=== PATIENT | female | born 1990 | race Caucasian/White ===

== ENCOUNTER → 2018-04-27 10:59 | Outpatient (CLI) | payer SELFPAY ==
[2018-04-27 12:46] LABS: Color, Urine Yellow (Yellow); Glucose, Dipstick Normal (Normal); Ketone-Dipstick Negative (Negative); Leukocyte Esterase-Dipstick Negative /ul (Negative); Nitrite-Dipstick Negative (Negative); Occult Blood-Urine Negative /ul (Negative); Protein-Dipstick Negative (Negative); Specific Gravity, Urine 1.005 (1.002-1.030); Urine Bilirubin Dipstick Negative (Negative); Urine Clarity Clear (Clear); Urine Urobilinogen Normal (Normal)
[2018-04-27 12:53] LABS: Absolute Lymphocyte Count 1.49 X10^3/ul (0.83-4.51); Absolute Neutrophil Count 5.8 X10^3/uL (2.0-7.7); Basophil# 0.01 X10^3/uL; Basophil% 0.1 % (0-1); Eosinophil# 0.05 X10^3/uL; Eosinophils% 0.6 % (0-5); Hematocrit 38.2 % (37-47); Hemoglobin 12.7 g/dl (12.0-15.0); Lymphocyte # 1.49 X10^3/ul (4.0); Lymphocyte % 18.9 % (19-41); Mean Corp Hgb Conc 33.2 g/gl (32-36); Mean Corpuscular Hgb 29.2 pg (27.0-32.0); Mean Corpuscular Volume 87.8 fL (81-99); Mean Platelet Vol. 10.4 fl (6.2-12.0); Monocyte# 0.55 X10^3/uL; Neutrophil # 5.79 X10^3/uL (2.7-7.7); Neutrophil % 73.3 % (47-70); POSITIVE COUNT NO; POSITIVE DIFFERENTIAL NO; POSITIVE MORPHOLOGY NO; Platelet Count 239 K/mm3 (150-450); RBC Distribution Width CV 13.2 % (11.6-14.6); RBC Distribution Width SD 40.9 fl (35.1-43.9); Red Blood Count 4.35 M/mm3 (4.2-5.4); White Blood Count 7.9 K/mm3 (4.4-11.0)
[2018-04-27 15:48] LABS: Chlamydia Trachomatis by PCR Negative (Negative); Neisserai gonorrhoeae by PCR Negative (Negative); Probe Check PASS; Sample Adequacy Control PASS; Specimen Processing Control PASS
[2018-04-28 04:36] LABS: Prenatal RPR NONREACTIVE (NONREACTIVE)
[2018-04-28 11:46] LABS: HEPATITIS B SURFACE AG Negative (Negative); Hep C Antibodies <0.1 s/co ratio (0.0-0.9)
[2018-04-28 12:24] LABS: HIV - WCH Non-Reactive (Nonreactive); Rubella IgG 112.7 IU/mL
[2018-05-02 08:54] LABS: HPV Reflexed? NOT INDICATED
== END ==
PROVIDERS: Visit Provider Obstetrics & Gynecology
DX: Z34.81 Encounter for supervision of other normal pregnancy, first trimester (principal); Z11.3 Encounter for screening for infections with a predominantly sexual mode of transmission; Z12.4 Encounter for screening for malignant neoplasm of cervix
CPT/HCPCS: 36415; 81002; 85025; 86703; 86762; 86803; 87340; 87491; 87591; 88175; G0145

== ENCOUNTER → 2018-10-11 13:36 | Outpatient (CLI) | payer SELFPAY | PROVIDERS: Visit Provider Obstetrics & Gynecology | DX: Z36.85 Encounter for antenatal screening for Streptococcus B (principal) | CPT/HCPCS: 87081 ==

== ENCOUNTER 2018-11-01 06:45 | Inpatient (IN) | payer SELFPAY ==
[2018-11-01] VITALS (19 sets, daily range): BP systolic 94–124; BP diastolic 41–71; PULSE 74–98; RESP 14–16; TEMP 36.1–36.6; O2SAT 95–100; BMI 45.6
[2018-11-01] MEDS: Lactated Ringers 1,000 ML 125 ML IV (07:25)
[2018-11-01 07:43] LABS: Hematocrit 37.1 % (37-47); Hemoglobin 11.9 g/dl (12.0-15.0); Mean Corp Hgb Conc 32.1 g/gl (32-36); Mean Corpuscular Hgb 27.9 pg (27.0-32.0); Mean Corpuscular Volume 87.1 fL (81-99); Mean Platelet Vol. 9.8 fl (6.2-12.0); Platelet Count 209 K/mm3 (150-450); RBC Distribution Width CV 15.1 % (11.6-14.6); RBC Distribution Width SD 47.6 fl (35.1-43.9); Red Blood Count 4.26 M/mm3 (4.2-5.4); White Blood Count 12.9 K/mm3 (4.4-11.0)
[2018-11-01 07:48] LABS: Scan Indicated on CBC? Y/N NO
[2018-11-01] MEDS: Lactated Ringers 1,000 ML 999 ML IV (08:14)
[2018-11-01] MEDS: Sodium Citrate/Citric Acid 30 ML UDC PO (08:25)
--- NOTE | 2018-11-01 08:25 | PCM.OPRPT ---
Report of Operation Date of Procedure: 11/01/18 Pre-Operative Diagnosis: Breech Presentation Post-Operative Diagnosis: Breech Presentation Surgery/Procedure Performed:: External Cephalic Version Description of Surgical Findings:: Ultrasound shows baby in breech presentation. Left fundal placenta. Amniotic fluid index of 9-10 cm. [employer] operations specialist: Shana Holman Anesthesiologist: Rinku Camacho Estimated Blood Loss (mL): Normal Fluids Replaced: Crystalloid Description of Procedure: After confirmation of breech presentation with ultrasound, 3 attempts were made for external cephalic version and were unsuccessful. heart tones were noted to be reactive before and after the procedure. Patient tolerated the procedure well. Version attempt was unsuccessful. Plans in progress to proceed with section as patient is 39 weeks and 6 days gestation. - Complications None - Admit VTE Documentation VTE Present on Admission: No
--- NOTE | 2018-11-01 08:28 | OP.PCM_ITS ---
Report of Operation Date of Procedure: 11/01/18 Pre-Operative Diagnosis: Breech Presentation Post-Operative Diagnosis: Breech Presentation Surgery/Procedure Performed:: External Cephalic Version Description of Surgical Findings:: Ultrasound shows baby in breech presentation. Left fundal placenta. Amniotic fluid index of 9-10 cm. dry kiln operator: Shana Holman Anesthesiologist: Rinku Camacho Estimated Blood Loss (mL): Normal Fluids Replaced: Crystalloid Description of Procedure: After confirmation of breech presentation with ultrasound, 3 attempts were made for external cephalic version and were unsuccessful. heart tones were noted to be reactive before and after the procedure. Patient tolerated the procedure well. Version attempt was unsuccessful. Plans in progress to proceed with section as patient is 39 weeks and 6 days gestation. - Complications None - Admit VTE Documentation VTE Present on Admission: No
--- NOTE | 2018-11-01 08:36 | PCM.OPRPT ---
Report of Operation Date of Procedure: 11/01/18 Pre-Operative Diagnosis: Breech Presentation Post-Operative Diagnosis: Breech Presentation Surgery/Procedure Performed:: Primary Low Transverse Cervical Section Description of Surgical Findings:: Viable female infant with Apgars of 9/9 in a doris breech presentation with clear amniotic fluid and normal three-vessel placenta. customer resolution specialist: Dianna Lieberman Type of Anesthesia:: Spinal - with Druamorph Anesthesiologist: Rinku Camacho Specimen's removed: Placenta removed and sent to [facility] Drains: Alfred to straight drain Estimated Blood Loss (mL): Minimal Fluids Replaced: Crystalloid Description of Procedure: Surgeon: Gabe Lara MD, FACOG Findings: Viable female with Apgars of 9/9 in doris presentation with clear amniotic fluid and normal three-vessel placenta. Indication: This is a 28-year-old who presents for her first at 39+ weeks gestation. Baby was noted to be in breech presentation yesterday. Version attempt this a.m. was not successful. Patient has had 4 prior vaginal births. care has otherwise been uneventful. The patient has been counseled regarding the risk and indications of this procedure including the possibility of bleeding infection and injury to surrounding structures such as bowel bladder. All questions were answered. Procedure: Patient was taken to the operating room where after spinal anesthesia was placed, the patient was prepped and draped in usual sterile fashion and a Alfred catheter was placed. The abdomen was entered through a Pfannenstiel incision and peritoneum was entered bluntly. After developing a bladder flap on the lower uterine segment a low transverse incision was made on the uterus and breech was easily delivered onto the operative field the nose mouth and oropharynx were bulb suctioned. A viable female was born with Apgars of 9/9. The was noted to cry move all extremities vigorously on the operative field. The umbilical cord was doubly clamped and ligated and handed to the nursery personnel who were present for the delivery. Placenta was delivered and noted to be 3 vessels and normal. Uterus was exteriorized and remaining placental tissue was removed. The uterus was then closed in 2 layers first with running locked 0 Vicryl suture followed by a second imbricating layer with 0 Vicryl suture. 0 Vicryl suture was then used in a horizontal mattress interrupted fashion to affect final hemostasis of the uterine incision line. Normal fallopian tubes and ovaries were visualized and the uterus was returned to the pelvis. Hemostasis was noted and rectus abdominis muscles were reapproximated in the midline with interrupted Number 0 Vicryl suture in a horizontal mattress fashion. Fascia was closed with running Number 1 PDS Strata fix suture. Subcutaneous tissue was irrigated with copious amouts of saline solution and then closed with running 3-0 Vicryl suture. Skin was closed with 4-0 monocryl suture in a running subcuticular fashion. Steri strips, telfa, and tape were placed across the incision. The patient tolerated the procedure well and was taken to the recovery room in satisfactory condition. Sponge, needle, and instrument counts were all reportedly correct. EBL was less than 500 cc. Ancef 2 gms IV was given prior to the procedure. Spicemen to Pathology: None Grafts/Implants Used: None - Complications None - Admit VTE Documentation VTE Present on Admission: Yes VTE Mechan Device Prophylaxis: SCD's VTE Pharm Prophylaxis ordered?: Yes
[2018-11-01] MEDS: Cefazolin 2 GM in 0.9% Normal Saline 100 ML IV (08:44)
--- NOTE | 2018-11-01 08:44 | DCINST_ITS ---
Discharge Diet: No Restrictions Discharge Activity: May not drive while taking narcotic pain medications., May Shower, May Take a Tub Bath May resume sexual activity in: 4-6 weeks Lifting Restrictions: 20 pounds Additional Activity Instructions:: Nothing in the vagina for 4-6 weeks. You may return to work/school in 6 weeks. Call your doctor if your incision/area has: Continuous Slow Oozing, Sudden Increased Bleeding, Increased Pain/ Swelling, Increased Redness, Foul Smelling Discharge Call your doctor if you observe: Fever of 101 or Higher, Inability to urinate, Inability to have a bowel movement, Using more than one pad per hour Additional Instructions: If you experience any of the following, contact your healthcare provider. * Bleeding that soaks a pad every hour for 2 hours * Unrelieved incision or abdominal pain * Swelling, redness, discharge or bleeding from your incision or episiotomy site * Your incision begins to separate * Problems urinating (including inability to urinate or burning while urinating). * Visual changes * Severe headache * Flu-like symptoms * Pain or redness in one of both of your breasts * Pain, warmth, tenderness or swelling in your legs, especially the calf area * Frequent nausea and vomiting * Symptoms of depression or anxiety If you experience any of the following, call 911 or go to the nearest Emergency Room. * Chest pain * Problems breathing * Seizure activity * Partial or complete paralysis of a body part, slurred speech, weakness or drooping of the face, or a sudden inability to walk or hold your balance Allergies/Adverse Reactions: Allergies No Known Allergies Allergy (Verified 11/01/18 07:43) Medications to take at Discharge Docusate Sodium [Colace] 100 mg PO BID PRN PRN #60 cap 11/01/18 Oxycodone [Oxyir] 5 mg PO Q6H PRN PRN 7 Days #20 tab 11/01/18 Vits [Prenatabs FA ] 2 tab PO DAILY 11/01/18 The following prescriptions were given: Oxycodone [Oxyir] 5 mg PO Q6H PRN PRN 7 Days #20 tab PRN Reason: Severe Pain (6-07/12) Docusate Sodium [Colace] 100 mg PO BID PRN PRN #60 cap PRN Reason: Constipation Follow-Up: Call to make an appointment with your doctor for an incision check in 1-2 weeks. You will also need a 6 week post- follow up appointment. Test results from this visit will be discussed in further detail at your follow- up appointment, if applicable. Please Follow Up With: Gabe Lara MD - [phone] When: Call to make an appointment for an incision check in 2 weeks. Primary Care Physician: Gabe Hernandez [Primary Care Provider] -
[2018-11-01] MEDS: Oxytocin 30 units/NS 500 ml 30 UNITS/500 ML IV.SOLN 167 UNITS IV ×2 (09:15→09:42)
[2018-11-01] MEDS: Ketorolac 30 MG/ML Syringe IV ×3 (09:50→21:53)
[2018-11-01] MEDS: Lactated Ringers 1,000 ML 100 ML IV ×2 (10:08→21:52)
[2018-11-01] MEDS: Cefazolin 1 GM/50 ML BAG IV (17:18)
[2018-11-01] MEDS: Enoxaparin 40 MG/0.4 ML Syringe SC (17:18)
--- NOTE | 2018-11-01 18:23 | NURSING ---
1820 pt oob up to chair; pt gait steady;
[2018-11-02] VITALS (8 sets, daily range): BP systolic 104–117; BP diastolic 53–74; PULSE 76–92; RESP 14–16; TEMP 36.4–36.6; O2SAT 96–98
[2018-11-02] MEDS: Cefazolin 1 GM/50 ML BAG IV (00:55)
[2018-11-02] MEDS: Ketorolac 30 MG/ML Syringe IV ×3 (03:56→15:51)
[2018-11-02 06:37] LABS: Hematocrit 32.7 % (37-47); Hemoglobin 10.6 g/dl (12.0-15.0); Mean Corp Hgb Conc 32.4 g/gl (32-36); Mean Corpuscular Hgb 28.3 pg (27.0-32.0); Mean Corpuscular Volume 87.2 fL (81-99); Mean Platelet Vol. 9.8 fl (6.2-12.0); Platelet Count 174 K/mm3 (150-450); RBC Distribution Width CV 15.5 % (11.6-14.6); RBC Distribution Width SD 49.5 fl (35.1-43.9); Red Blood Count 3.75 M/mm3 (4.2-5.4); White Blood Count 11.8 K/mm3 (4.4-11.0)
[2018-11-02] MEDS: Lactated Ringers 1,000 ML 100 ML IV (06:47)
[2018-11-02 06:51] LABS: Scan Indicated on CBC? Y/N NO
--- NOTE | 2018-11-02 09:55 | PCM.PN.OB ---
Subjective: Patient without complaints. Tolerating diet well. Positive flatus. Considering discharge to home later today if baby is able to be discharged. - Physical Exam Vital Signs Temp Pulse Resp BP Pulse Ox 97.6 F L 76 16 114/64 97 11/02/18 08:00 11/02/18 08:00 11/02/18 08:00 11/02/18 08:00 11/02/18 08:00 Oxygen Delivery Method Room Air Weight: 282 lb 6.594 oz Body Mass Index (BMI) 45.6 Intake and Output for Last 24 Hours 10/31/18 11/01/18 11/02/18 23:59 23:59 23:59 Intake Total 5534 / 5534 1450 / 1450 Output Total 3300 / 3300 1200 / 1200 Balance 2234 / 2234 250 / 250 Laboratory Tests Past 24 Hrs 11/02/18 06:06 WBC 11.8 H RBC 3.75 L Hgb 10.6 L Hct 32.7 L MCV 87.2 MCH 28.3 MCHC 32.4 RDW 15.5 H RDW Differential 49.5 H Plt Count 174 MPV 9.8 Wound is clean, dry, intact. Good urine output. Hemoglobin okay. Medical Necessity - Tobacco Use Smoking Status: Never smoker Assessment/Plan Doing well postoperative day #1 status post primary section for breech presentation. Continuing present care. Home-going instructions given in anticipation of possible release to home later today.
[2018-11-02] MEDS: Senna/Docusate Sodium 1 Tablet PO (10:14)
[2018-11-02] MEDS: 0.9% Saline Lock 10 ML Syringe IV ×2 (10:14→15:51)
[2018-11-02] MEDS: oxyCODONE 5 MG Tablet PO (12:22)
[2018-11-02] MEDS: Acetaminophen 500 MG Tablet 1000 MG PO (19:41)
== END 2018-11-02 20:15 | disposition home or self-care (01) | DRG 788 ==
PROVIDERS: Admitting Provider Obstetrics & Gynecology; Family Provider Family Medicine; PCP Family Medicine; Referring Provider Obstetrics & Gynecology; Visit Provider Obstetrics & Gynecology
PROC: 10D00Z1 Extraction of Products of Conception, Low, Open Approach (ICD-10-PCS; CPT 59514; principal; 2018-11-01 08:15)
DX: O32.1XX0 Maternal care for breech presentation, not applicable or unspecified (principal); Z3A.39 39 weeks gestation of pregnancy; Z37.0 Single live birth
CPT/HCPCS: 59050; 59412; 85027; 86850; 86900; 99218; J7120; A4216; G0378

== ENCOUNTER 2025-09-29 01:31 | Emergency (ER) | payer OTHER, SELFPAY ==
[2025-09-29 01:31] VITALS: BP 148/83; PULSE 102; RESP 12; TEMP 36.1; O2SAT 96; BMI 45.5
--- NOTE | 2025-09-29 01:50 | RAD_ITS ---
PROCEDURE: FOOT MIN 3 VIEWS 09/28/2025 REASON FOR EXAM: FALL TECHNIQUE: Procedure Code: RADFO Modality: DX Procedure: FOOT MIN 3 VIEWS Laterality: Right COMPARISON: None available. FINDINGS: Bones: Mild plantar calcaneal spurring. No visible fracture. No suspicious bone lesion. Joints: Normal alignment. Soft tissues: Soft tissues are unremarkable. RAD/Foot min 3 Views IMPRESSION: Mild plantar calcaneal spurring. No acute fractures or dislocations. Reading [facility]
--- OUTSIDE RECORDS SUMMARY | 2025-09-29 02:00 | XMS RPT_ITS | CCD ---
Author Organization [facility] CliniSywv Care Team Providers Care Senior Internet Sales Consultant Name Role Phone TED NICHOLSON Admitting Unavailable TED NICHOLSON Attending Unavailable TED NICHOLSON Primary Care Unavailable VACCARIELLO, TED Consulting Unavailable PROVIDER, UNKNOWN Consulting Unavailable PROVIDER, UNKNOWN Consulting Unavailable PROVIDER, UNKNOWN Consulting Unavailable VACCARIELLO, TED Admitting Unavailable VACCARIELLO, TED Attending Unavailable VACCARIELLO, TED Primary Care Unavailable VACCARIELLO, TED Consulting Unavailable PROVIDER, UNKNOWN Consulting Unavailable PROVIDER, UNKNOWN Consulting Unavailable PROVIDER, UNKNOWN Consulting Unavailable ELVIN SIM Admitting Unavailable ELVIN SIM Attending Unavailable VACCARIELLO, TED Referring Unavailable ELVIN SIM Primary Care Unavailable VACCARIELLO, TED Consulting Unavailable PROVIDER, UNKNOWN Consulting Unavailable PROVIDER, UNKNOWN Consulting Unavailable PROVIDER, UNKNOWN Consulting Unavailable Maciel Ibarra Attending Unavailable Vaccariello, Ted Referring Unavailable Vaccariello, Ted Primary Care Unavailable Results Test Name Value Interpretation Reference Range [facility] it Urgent Care Visit Reporton 10-11-2021 Urgent Care Visit Report [facility] [address] [place] [address] [address] [place] [id number] OFFICE VISIT Date of Service: 08/11/22 MR#: [id number] Acct: [id number] Name: MAGDALENA CASTELLON Claire Rep #: [id number] : 1990 Provider: SON Ibarra Age/Sex: 32/F Location: [facility] Status: Signed Intake Vital Signs 08/11/22 09:12 Height 1.68 m Weight: 123.831 kg BMI 44.0 BP 121/82 H Blood Pressure Location Lt brachial Position Sitting Respiration 16 Pulse 88 Pulse Source Monitor Temp 98.5 F Temp Source Temporal Pulse Oximetry (%) 98 Oxygen Delivery Method room air Intake Visit Reasons: COUGH, SINUS/ CHEST CONGESTION Chief Complaint: cogh Allergies No Known Allergies Allergy (Verified 08/11/22 09:13) Medications docusate sodium 100 mg capsule 100 mg PO BID PRN PRN Constipation #60 caps 11/01/18 [Rx Confirmed 08/11/22] amoxicillin 875 mg-potassium clavulanate 125 mg tablet 1 tab PO Q12H #14 tabs 08/11/22 [Rx Confirmed 08/11/22] PFSH Medical History (Updated 08/11/22 @ 09:45 by Maciel CLINE, PA) Acute sinusitis Surgical History (Updated 08/11/22 @ 09:16 by Anna Smith) History of delivery Hx of cholecystectomy Hx of hernia repair Family History (Updated 08/11/22 @ 09:16 by Anna Smith) Grandfather Heart disease Social History (Updated 08/11/22 @ 09:16 by Anna Smith) Smoking Status: Never smoker alcohol intake: never HPI HPI Chief Complaint: [facility] Details: MAGDALENA CASTELLON, is a 32 F who presents to the office today for cough. This has been ongoing for several weeks. Cough is nonproductive, with no SOB. She has been treating with OTC/home remedies but she has overall had no improvement. She also has congestion, and pressure in the maxillary sinus. She has no fever/chills. No N/V/D. ROS Const Constitutional: No chills, fatigue or fever(s) ENT ENT: Positive for nasal congestion, sinus pressure and nasal discharge; No ear or mastoid pain, ear pressure or sore throat Resp Respiratory: Positive for cough; No shortness of breath or wheezing Gastro GI: No diarrhea, nausea/dyspepsia or vomiting Endo Endocrine: No fatigue Aller/Imm Allergy/Immunologic: No wheezing Exam Const General: cooperative, healthy appearing, comfortable, no acute distress, well developed and well groomed Nutritional Appearance: overweight Orientation: alert, awake and oriented x3 HENMT Head: normocephalic and atraumatic Ears: hearing grossly normal bilaterally, external ears normal and TM's normal bilaterally Nose: external nose normal, nares normal and nasal discharge Face and sinus: sinus tenderness maxillary Throat: posterior oropharynx normal, tonsils normal and uvula midline Resp Effort Inspection: normal respiratory effort, able to speak in complete sentences, symmetric chest movement and cough Auscultation: Bilateral: Clear to Auscultation Cardio Rate: regular rate Rhythm: regular rhythm Heart Sounds: no murmurs Coding Level of Care Code Off vis,new,level 3 Diagnoses Acute sinusitis J01.90 Assessment and Plan Assessment and Plan (1) Acute sinusitis: Status: Acute Medications: New amoxicillin-pot clavulanate 875-125 mg 1 TAB PO Q12H 14 tabs 0RF Plan Sick with cough and sinus pressure x 2 weeks, no improvement with OTC or home remedies. Sinus pressure on exam, lungs clear with no hypoxia. Start augmentin and mucinex. If no improvement follow up for re-eval. If worsening go to the ER. 08/11/2246 Date Maciel Torrezigner Signature: Date (if applicable) CC: [facility] Final Surgical Pathology Rep [facility] 12-11-2018 Final Surgical Pathology Report . Pathology Reports Accession: Collected Date/Time: Received Date/Time: Pathologist: [id number] 12/07/2018 09:27 EST 12/08/2018 09:27 DO RAMSEY WING Final Surgical Pathology Report DIAGNOSIS: GALLBLADDER -- CHOLELITHIASIS, CHRONIC CHOLECYSTITIS AND CHOLESTEROLOSIS. COMMENT: [facility] - A# [id number] CLINICAL INFORMATION: BILIARY COLI SPECIMEN: A GALLBLADDER GROSS DESCRIPTION: Received in formalin labeled with the patient's name is 7.8 x 3.2 x 2.6 cm gallbladder with an attached cystic duct. The serosa is pink-red and smooth. Opening shows an abundant amount of sludge like yellow bile and multiple yellow bosselated choleliths measuring up to 0.4 cm. The mucosa is green and velvety. The wall ranges up to 0.2 cm in thickness. RS -1 Dictated by Jasmyne CLINE ([facility]) MICROSCOPIC DESCRIPTION: Slides reviewed. Electronically Signed by Pathology Report verified by [facility] Electronically signed by RAMSEY GIBSON DO Sign out Date: 12/11/2018 14:45 Performing Lab: [facility], [address] [place] [id number] [facility] ([place]) Comment on above: Performed By: #### S PFR #### [address] [address] OPERATIVE PROCEDURESon 12-08 [facility] OPERATIVE REPORT NAME ACCOUNT SEX AGE ADMIT DISCHARGE PT MED. RECORD# NUMBER DATE DATE TYPE CANDE, [id number] F 28 12/07/18 12/07/18 2 MAGDALENA Rangel [id number] ROOM: [facility] DATE OF : 1990 DICTATING PHYSICIAN: Elvin Sim DATE OF SURGERY: December 07, 2018 SURGEON: Elvin Sim MD HUMAN GEOGRAPHY FACULTY MEMBER: Tiffany Cabrales CSA ANESTHESIOLOGIST: ANESTHETIC: General endotracheal with 1% lidocaine and 0.5% Marcaine without epinephrine locally. PREOPERATIVE DIAGNOSIS: Biliary colic. POSTOPERATIVE DIAGNOSIS: Biliary colic. OPERATION PERFORMED: Laparoscopic cholecystectomy. COMPLICATIONS: None. ESTIMATED BLOOD LOSS: 2 mL. DRAINS: None. SPECIMENS: Gallbladder. DISPOSITION: The patient recovered in the PACU and was then discharged home. Diet: Regular. Activity: The patient was instructed not to lift more than 20 pounds or the equivalent of exertion. Otherwise, activity as tolerated. Medications: The patient was given Branford as needed for pain and Colace as needed for constipation. The patient was instructed to resume all previous home medications. Work: The patient was given a two-week excused absence from work. Follow up in Dr. Sim's clinic in 2 weeks. DESCRIPTION OF OPERATION: Following the initiation of general endotracheal anesthesia, the patient was sterilely prepped and draped in the usual sterile supine position, and 1% lidocaine and 0.5% Marcaine without epinephrine were infused into the supraumbilical position. An 11 blade scalpel was then used to create a Page 1 of 3 MAGDALENA CASTELLON Operative Report semi-circumferential supraumbilical incision. The incision was completed using electrocautery, and hemostasis was achieved using electrocautery as well. Blunt dissection was then used to dissect down to the level of the anterior abdominal fascia. The anterior abdominal fascia was grasped with two Jj clamps, and the abdomen was entered using Metzenbaum scissors. A finger was inserted through the defect in the anterior abdominal wall and inspected. There were no anterior abdominal wall defects and/or adhesions. A 12 mm Alonso trocar was secured into position. The abdomen was insufflated with CO2 gas. A 5 mm 30-degree camera was inserted through the trocar and the abdomen inspected. There were no acute intra-abdominal abnormalities. Under direct visualization, a 5 mm trocar was established in the subxiphoid position, and two 5 mm trocars were established in the right subcostal position. Prior to establishment of these trocar sites, the areas were anesthetized with 1% lidocaine and 0.5% Marcaine without epinephrine locally. She was then placed in reverse Trendelenburg with left side down positioning. The dome of the gallbladder was readily visible. Thus, it was grasped and retracted in a cranial direction. Blunt dissection was then used to dissect free the cystic artery and cystic duct. Once a critical view of the structures had been obtained, both the cystic artery and cystic duct were clipped twice proximally and once distally and transected with laparoscopic scissors. Electrocautery was then used to remove the gallbladder from the gallbladder fossa. Hemostasis within the gallbladder fossa was obtained using electrocautery as well. Once the gallbladder was removed, it was placed within an Endo Catch bag. There was some mild bile spillage during the procedure. This was first aspirated and then irrigated and aspirated until the irrigant ran clear. The gallbladder fossa was inspected once again and found to have adequate hemostasis. The cystic artery and cystic duct stumps were inspected and found to have adequate clip placement. The patient was then returned to the neutral position. The abdomen was allowed to desufflate through all port sites. The subxiphoid and two right subcostal ports were removed under direct visualization. The abdomen was allowed to completely desufflate through the supraumbilical port site. The supraumbilical port and the Endo Catch bag containing the gallbladder were then removed from the supraumbilical position. The anterior abdominal fascia was repaired using interrupted 0 Vicryl sutures. The dermis was repaired using interrupted 4-0 Vicryl sutures, and all skin incisions were repaired using 5-0 Monocryl. All instrument, needle and sponge counts were correct x2. The wounds were appropriately dressed and bandaged. The patient was then awakened, extubated and taken to the PACU in good and stable condition. Dictated By: Elvin Sim MD 12/07/18 15:03 JOB #: [id number] Transcribed By: aure 12/08/18 07:34 Electronically signed by: E-SIGN DR. SIM 12/08/18 09:37 Page 2 of 3 MAGDALENA CASTELLON Operative Report Page 3 of 3 MAGDALENA CASTELLON Operative Report Normal [facility] URINEon 12-07-2018 EXTERNAL QC DONE? YES Normal [facility] Comment on above: Performed By: #### 2 97771 #### [facility],[address] [place] [address] HCG.beta subunit ( test) Ql (U) Negative Normal NEGATIVE [facility] Comment on above: Performed By: #### 2 44626 #### [facility],[address] [place] [address] INTERNAL QC PASS Normal [facility] Comment on above: Performed By: #### 2 74323 #### [facility],[address] [place] [address] US RUQ (GB/PANCREAS)on 11-23 US RUQ (GB/PANCREAS) [place] [address] Patient: MAGDALENA CASTELLON Claire. Phone#: : 1990 Age: 28 Gender: F Pt. Type: Out Account: [id number] Location: Ordering: TED MARC Exam Date: 11/23/2018/11:44 Family Phys: INGRIS LACY Charge Code: 026924 Physician: [place] Order #: [id number] DLP Dose#: PROCEDURE: RUQ (GB) ULTRASOUND COMPARISON: None. INDICATIONS: Abdominal pain FINDINGS: LIVER: Normal. Normal size and echotexture. No significant masses. BILIARY: Numerous small shadowing stones are seen within the gallbladder lumen. A used equipment sales representative stone measures 0.2 cm. Common bile duct diameter 4 mm. The gallbladder wall measures 0.1 cm. PANCREAS: Limited visualization of pancreas, visualized portion is unremarkable. RIGHT KIDNEY: Normal renal parenchymal echogenicity. No hydronephrosis. OTHER: Negative. CONCLUSION: 1. Cholelithiasis. Numerous small shadowing stones in the gallbladder lumen. DICTATED BY: YOLIE CALVILLO MD ON 11/23/2018 AT 12:26 APPROVED BY: YOLIE CALVILLO MD ON 11/23/2018 AT 12:26 Normal [facility] CBCon 08-16-2018 Basophils #/vol (Bld) 0.10 x10EE3/UL Normal 0.00 - 0.10 [facility] Comment on above: Performed By: #### 2 23327 #### [facility],[address] [place], [place] [id number] Basophils/100 WBC (Bld) 0.6 % Normal 0.0 - 2.0 [facility] Comment on above: Performed By: #### 2 13158 #### [facility],[address] [place] [address] CBC Normal [facility] Comment on above: Result Comment: CBC- COMPLETE BLOOD COUNT Performed By: #### 2 83597 #### [facility],[address] [place] [address] Eosinophils #/vol (Bld) 0.10 x10EE3/UL Normal 0.00 - 0.50 [facility] Comment on above: Performed By: #### 2 90426 #### [facility],[address] [place] [address] Eosinophils/100 WBC (Bld) 0.6 % Normal 0.0 - 7.0 [facility] Comment on above: Performed By: #### 2 48101 #### [facility],[address] [place] [address] Erythrocyte distribution width Ratio (RBC) 14.3 % Normal 12.0 - 15.6 [facility] Comment on above: Performed By: #### 2 88974 #### [facility],[address] [place], [place] [id number] Hematocrit Volume Fraction (Bld) 36.2 % Normal 34.0 - 46.0 [facility] Comment on above: Performed By: #### 2 64573 #### [facility],[address] [place] [address] Hemoglobin mass conc (Bld) 11.9 g/dL Low 12.0 - 16.0 [facility] Comment on above: Performed By: #### 2 02769 #### [facility],[address] [place] [address] Lymphocytes #/vol (Bld) 1.80 x10EE3/UL Normal 0.80 - 2.80 [facility] Comment on above: Performed By: #### 2 05590 #### [facility],[address] [place] [address] Lymphocytes/100 WBC (Bld) 14.2 % Low 20.0 - 45.0 [facility] Comment on above: Performed By: #### 2 83332 #### [facility],[address] [place], [place] [id number] MANUAL DIFF N/A Normal [facility] Comment on above: Performed By: #### 2 54782 #### [facility],[address] [place] [address] MCH Entitic mass (RBC) 29 pg Normal 27 - 33 [facility] Comment on above: Performed By: #### 2 45697 #### [facility],[address] [place] [address] MCHC mass conc (RBC) 33 X10 3 Normal 32 - 36 [facility] Comment on above: Performed By: #### 2 83366 #### [facility],[address] [place] [address] MCV Entitic volume (RBC) 87 fL Normal 80 - 99 [facility] Comment on above: Performed By: #### 2 17897 #### [facility],[address] [place] [address] Monocytes #/vol (Bld) 0.80 x10EE3/UL Normal 0.20 - 1.00 [facility] Comment on above: Performed By: #### 2 10781 #### [facility],[address] [place] [address] MONOS % 6.6 % Normal 0.0 - 10.0 [facility] Comment on above: Performed By: #### 2 58761 #### [facility],[address] [place] [address] Morphology Interp Fadi (Bld) N/A Normal [facility] Comment on above: Result Comment: {CD] Performed By: #### 2 84165 #### [facility],[address] [place] [address] Neutrophils #/vol (Bld) 10.00 x10EE3/UL High 1.50 - 7.10 [facility] Comment on above: Performed By: #### 2 98084 #### [place] [address] Neutrophils/100 WBC (Bld) 78.0 % High 46.0 - 76.0 [facility] Comment on above: Performed By: #### 2 89227 #### [place] [address] Platelet mean volume Entitic volume (Bld) 9.2 fL Normal 6.6 - 10.5 [facility] Comment on above: Result Comment: AUTO MATED DIFFERENTIAL Performed By: #### 2 74744 #### [facility],[address] [place] [address] Platelets #/vol (Bld) 207 x10EE3/UL Normal 150 - 450 [facility] Comment on above: Performed By: #### 2 79011 #### [address] [address] RBC #/vol (Bld) 4.19 x 10EE6/UL Normal 4.10 - 5.30 [facility] Comment on above: Performed By: #### 2 72673 #### [place] [address] WBC #/vol (Bld) 12.9 x 10EE3/UL High 4.5 - 10.8 [facility] Comment on above: Performed By: #### 2 41104 #### [facility],[address] [place], [place] [id number] GLUCOSE CHALLENGE 50GM 1 EDITA Brian 08-16-2018 Glucose mass conc 98 mg/dL Normal 70 - 140 [facility] Comment on above: Performed By: #### 2 09513 #### [facility],[address] [place], [place] [address] Glucose mass conc Normal [facility] Comment on above: Result Comment: GLUC OSE CHALLENGE 50 GMS 1 HOUR Performed By: #### 2 78744 #### [facility],[address] [place], [place] [id number] Encounters Encounter Date Encounter Type Care Provider Facility Start: 08-11-2022 End: 08-11-2022 ambulatory Maciel Ibarra Facility:[facility] Start: 12-07-2018 End: 12-07-2018 Patient encounter procedure ELVIN Fabiana SIM [facility] Start: 11-23-2018 End: 11-23-2018 Patient encounter procedure TED MARC [facility] Start: 08-15-2018 End: 08-15-2018 Patient encounter procedure MADISON LEIDYPHILIP [facility] Payers Date Payer Category Payer Self-pay 1990 Unknown [id number] Unknown Unknown [id number] Summary Purpose Family History No Family History Records FoundNo Family History Records FoundNo Family History Records Found Advance Directives No Advanced Directives Records FoundNo Advanced Directives Records FoundNo Advanced Directives Records Found Additional Source Comments INFORMATION SOURCE (unrecogn ized section and content) DATE CREATED AUTHOR 12/09/2018 [facility] DATE CREATED AUTHOR AUTHOR'S ORGANIZ ATION 12/12/2018 [facility] ([place]) DATE CREATED AUTHOR AUTHOR'S ORGANIZ ATION 08/11/2022 [facility] FOR RECORDS PERTAINING TO PATIENTS WHO ARE OR HAVE BEEN ENROLLED IN A CHEMICAL DEPENDENCY/SUBSTANCEABUSE PROGRAM, SOME INFORMATION MAY BE OMITTED. This clinical summary was aggregated from multiple sources. Caution should be exercised in using it in the provision of clinical care. This summary normalizes information from multiple sources, and as a consequence, information in this document may materially change the coding, format and clinical context of patient data. In addition, data may be omitted in some cases. CLINICAL DECISIONS SHOULD BE BASED ON THE PRIMARY CLINICAL RECORDS. [facility]. provides no warranty or guarantee of the accuracy or completeness of information in this document.
--- NOTE | 2025-09-29 04:01 | ED.VIS.LOWEX ---
HPI History of Present Illness HPI Narrative: Patient was seen and examined after presenting to ED for right foot pain she states that she injured herself on [place] when she missed a step. Chief Complaint: Lower Extremity Injury PFSH PFSH Medical History Acute sinusitis Home Medications ?Medication ?Instructions ?Recorded ?Last Taken ?Type docusate sodium 100 mg capsule 100 mg PO BID PRN PRN Constipation 11/01/18 Unknown Rx #60 caps amoxicillin 875 mg-potassium 1 tab PO Q12H #14 tabs 08/11/22 Unknown Rx clavulanate 125 mg tablet Allergy/AdvReac Type Severity Reaction Status Date / Time No Known Allergies Allergy Verified 09/29/25 01:32 Family History Grandfather Heart disease Surgical History Hx of hernia repair Hx of cholecystectomy History of delivery Social History Smoking Status: Never smoker alcohol intake: never ROS ROS ED ROS Narrative Pertinent Positives: Right foot pain Pertinent Negatives: Head injury loss of consciousness chest pain shortness of breath The remainder of review of systems negative unless otherwise stated in the HPI above. Systems reviewed including constitutional, psychiatric, cardiovascular, respiratory, integument, HENT, gastrointestinal. EXAM Physical Exam Narrative Exam Narrative: Afebrile hemodynamically stable does not appear toxic or in distress normocephalic atraumatic compartments are soft in her extremities she has intact and equal MSPs nothing involving her ankle or fibular head involvement. She does have pain overlying her midfoot on the right foot no significant swelling or bruising noted Const Vital Signs: 09/29/25 01:31 Temperature 97 F L Temperature Source Temporal Pulse Rate 102 H Respiratory Rate 12 Blood Pressure 148/83 H Blood Pressure Mean 104 Pulse Ox 96 Oxygen Delivery Method Room Air MDM MDM MDM Narrative Medical decision making narrative: Nursing notes, triage notes, available previous documentation, and vital signs were reviewed. Any discrepancies noted were addressed. Differential Diagnoses: There could be a fracture or could just be a midfoot sprain low suspicion for ankle fracture definitely not compartment syndrome and or infectious process Interventions: Tylenol Imaging Reviewed: Personally reviewed and interpreted by me: Right foot x-ray I do not see any obvious fracture or dislocation official interpretation is agreeable Previous Documentation Reviewed: None available or applicable at this time. ED Course: Patient presenting with injury to her right foot following a fall on [place] no other injuries noted she appears to have a midfoot sprain return precautions follow-up recommendations provided patient stable for discharge home supportive measures are recommended. This note was made utilizing voice recognition software. All attempts were made to correct spelling or other errors prior to note completion. However, due to the fast-paced nature of emergency medicine, some errors may still be present. Radiography Diagnostic Testing: Clinical Impression(s) from Imaging Studies Foot X-Ray 09/29/25 01:50 IMPRESSION: Mild plantar calcaneal spurring. No acute fractures or dislocations. Reading Location: [facility] Discharge Plan Triage Chief Complaint: Lower Extremity Injury ED Provider: Heriberto Aj Dx/Rx/DC Orders Clinical Impression: Sprain of foot, right, Fall, Foot pain, right Instructions: ED Foot Sprain Prescriptions: No Action amoxicillin-pot clavulanate 875-125 mg tablet 1 tab PO Q12H Qty: 14 0RF docusate sodium 100 MG capsule 100 mg PO BID PRN PRN (Reason: Constipation) Qty: 60 1RF Primary Care Provider: Gabe Hernandez Referrals: Gabe Hernandez MD [Primary Care Provider, Family Practice] Activity Restrictions/Additional Instructions: I recommend that you follow-up with your primary care doctor if you can take ibuprofen I would do that in addition to it as milligrams of Tylenol 3-4 times a day otherwise ice it is much as you can tolerate. Please return if you are feeling worse Print Language: Kinyarwanda Disposition Disposition: Home, Self Care
[2025-09-29 04:08] VITALS: BP 128/69; PULSE 85; RESP 16; TEMP 36.1; O2SAT 99
== END 2025-09-29 04:15 | disposition home or self-care (01) ==
PROVIDERS: Emergency Provider Specialist/Technologist Athletic Trainer; PCP Family Medicine; Visit Provider Specialist/Technologist Athletic Trainer
DX: S93.601A Unspecified sprain of right foot, initial encounter (principal); Z90.49 Acquired absence of other specified parts of digestive tract; W10.9XXA Fall (on) (from) unspecified stairs and steps, initial encounter
CPT/HCPCS: 73630; 99282